=== PATIENT | female | born 1930 | race Caucasian/White ===

== ENCOUNTER 2017-12-09 15:15 | Inpatient (IN) ==
[2017-12-09 16:15] LABS: Basophils # 0.1 10*3/uL (0.0-0.2); Basophils % 1.1 % (0.0-0.8); Eosinophils # 0.2 10*3/uL (0.0-0.87); Eosinophils % 1.9 % (0.00-10.9); Hematocrit 35.4 VOL% (35.7-47.0); Hemoglobin 12.5 GM/DL (12.0-16.0); Immature Granulocytes % 0.4 %; Immature Granulocytes Absolute 0.03 #; Lymphocytes # 2.3 10*3/uL (1.4-4.0); Lymphocytes % 27.4 % (21.3-54.2); Mean Corpuscular HGB Conc 35.3 GM/DL (32-36); Mean Corpuscular Hemoglobin 33 PG (27-34); Mean Corpuscular Volume 93.4 FL (87-102); Mean Platelet Volume 10.8 FL (9.6-12.0); Monocytes # 1.1 10*3/uL (0.11-0.8); Monocytes % 12.9 % (1.7-12.7); Neutrophils # 4.6 10*3/uL (1.4-7.4); Neutrophils % 56.3 % (38.7-73.9); Platelet Count 228 T/CUMM (130-400); Red Blood Count 3.79 MC/CUMM (3.8-5.5); Red Cell Distribution Width 12.4 % (9.3-17.3); White Blood Count 8.2 T/CUMM (4-12)
[2017-12-09 16:37] LABS: INR 0.9
[2017-12-09 16:42] LABS: Albumin 3.8 G/DL (3.4-5.0); Bilirubin,Total 0.4 MG/DL (0.2-1.0); Calcium 9.2 MG/DL (8.5-10.1); Osmolality,Calculated 277.5 MOS/KG (273-304); Potassium 4.1 MMOL/L (3.5-5.1); Total Protein 6.9 G/DL (6.4-8.3)
[2017-12-09 16:43] LABS: Troponin I Only 0.207 NG/ML (0.00-0.045)
[2017-12-09] MEDS ORDERED: ENOXAPARIN 30 MG/0.3 ML SYRINGE SUBCUT STA (17:06)
[2017-12-09] MEDS ORDERED: ASPIRIN 325 MG TABLET PO STA (17:06)
[2017-12-09] MEDS ORDERED: ASPIRIN 325 MG TABLET ONE (17:08)
[2017-12-09] MEDS ORDERED: ENOXAPARIN 60 MG/0.6 ML SYRINGE ONE (17:08)
[2017-12-09] MEDS ORDERED: hydrALAZINE 20 MG/1 ML VIAL IV PRN (17:40)
[2017-12-09] MEDS ORDERED: DOCUSATE SODIUM 100 MG CAPSULE PO PRN (17:40)
[2017-12-09] MEDS ORDERED: FUROSEMIDE 40 MG/4 ML VIAL IV ONE (17:40)
[2017-12-09] MEDS ORDERED: ASPIRIN EC 325 MG TABLET PO STA (17:40)
[2017-12-09] MEDS ORDERED: NITROGLYCERIN SL 0.4 MG TABLET SL PRN (17:40)
[2017-12-09] MEDS ORDERED: ZALEPLON 5 MG CAPSULE PO PRN (17:40)
[2017-12-09] MEDS ORDERED: ONDANSETRON 4 MG/2 ML VIAL IV PRN (17:40)
[2017-12-09] MEDS ORDERED: MORPHINE 4 MG/1 ML VIAL IV PRN (17:40)
[2017-12-09] MEDS ORDERED: ACETAMINOPHEN 325 MG TABLET PO PRN (17:40)
[2017-12-09] MEDS ORDERED: FUROSEMIDE 40 MG/4 ML VIAL ONE (19:08)
[2017-12-09] MEDS: MECLIZINE 12.5 MG TABLET PO SCH (20:27)
[2017-12-09] MEDS: BRIMONIDINE/TIMOLOL OPH SOLN 5 ML BOTTLE BOTH EYES SCH (20:48)
[2017-12-09] MEDS ORDERED: ACETAMINOPHEN/diphenhydrAMINE 500-25 MG TABLET PO PRN (21:00)
[2017-12-09] MEDS: ATORVASTATIN 80 MG TABLET PO SCH (21:14)
[2017-12-09] MEDS: CARVEDILOL 3.125 MG TABLET PO SCH (21:14)
[2017-12-09] MEDS: ASPIRIN EC 81 MG TABLET PO SCH (21:14)
[2017-12-09] MEDS: POTASSIUM CHLORIDE 20 MEQ TABLET PO SCH (21:14)
[2017-12-09] MEDS: MAGNESIUM OXIDE 400 MG TABLET PO SCH (21:15)
[2017-12-10 04:26] LABS: Basophils # 0.1 10*3/uL (0.0-0.2); Basophils % 1.1 % (0.0-0.8); Eosinophils # 0.2 10*3/uL (0.0-0.87); Eosinophils % 2.2 % (0.00-10.9); Hemoglobin 11.7 GM/DL (12.0-16.0); Immature Granulocytes % 0.3 %; Immature Granulocytes Absolute 0.02 #; Lymphocytes # 2.3 10*3/uL (1.4-4.0); Lymphocytes % 32.5 % (21.3-54.2); Mean Corpuscular HGB Conc 34.4 GM/DL (32-36); Mean Corpuscular Hemoglobin 32 PG (27-34); Mean Corpuscular Volume 93.9 FL (87-102); Mean Platelet Volume 10.3 FL (9.6-12.0); Monocytes % 13.5 % (1.7-12.7); Neutrophils # 3.6 10*3/uL (1.4-7.4); Neutrophils % 50.4 % (38.7-73.9); Platelet Count 189 T/CUMM (130-400); Red Blood Count 3.62 MC/CUMM (3.8-5.5); Red Cell Distribution Width 12.2 % (9.3-17.3); White Blood Count 7.2 T/CUMM (4-12)
[2017-12-10 05:09] LABS: Calcium 8.6 MG/DL (8.5-10.1); Osmolality,Calculated 282.3 MOS/KG (273-304); Potassium 3.9 MMOL/L (3.5-5.1); Risk Ratio 2.38; Thyroid Stimulating Hormone 3.4 uIU/ml (0.358-3.74); VLDL CHOLESTEROL 21.6 MG/DL
[2017-12-10] MEDS ORDERED: DIAZEPAM 5 MG TABLET PO ONE (08:00)
[2017-12-10] MEDS ORDERED: diphenhydrAMINE CAP 25 MG CAPSULE PO ONE (08:00)
[2017-12-10] MEDS: BRIMONIDINE/TIMOLOL OPH SOLN 5 ML BOTTLE BOTH EYES SCH ×2 (08:51→21:35)
[2017-12-10] MEDS ORDERED: ASPIRIN EC 81 MG TABLET PO SCH (09:00)
[2017-12-10] MEDS ORDERED: HEPARIN/NACL 0.9% 2 UNITS/ML 1,000 ML IV ONE (10:11)
[2017-12-10] MEDS ORDERED: HYDROmorphone 2 MG/1 ML VIAL ONE (11:06)
[2017-12-10] MEDS ORDERED: MIDAZOLAM 2 MG/2 ML VIAL ONE (11:06)
[2017-12-10] MEDS: CARVEDILOL 3.125 MG TABLET PO SCH ×2 (12:21→21:35)
[2017-12-10] MEDS: SODIUM CHLORIDE 0.9% 1,000 ML IV SCH (12:55)
[2017-12-10] MEDS: POTASSIUM CHLORIDE 20 MEQ TABLET PO SCH ×2 (13:44→21:35)
[2017-12-10] MEDS: MAGNESIUM OXIDE 400 MG TABLET PO SCH ×2 (13:44→21:35)
[2017-12-10] MEDS: PANTOPRAZOLE 40 MG TABLET PO SCH (13:44)
[2017-12-10] MEDS: ISOSORBIDE MONONITRATE 30 MG TABLET PO SCH (17:25)
[2017-12-10] MEDS: ASPIRIN EC 81 MG TABLET PO SCH (21:35)
[2017-12-10] MEDS: ATORVASTATIN 80 MG TABLET PO SCH (21:35)
[2017-12-10] MEDS: MECLIZINE 12.5 MG TABLET PO SCH (21:51)
[2017-12-11] MEDS: SODIUM CHLORIDE 0.9% 1,000 ML IV SCH (00:22)
[2017-12-11 04:41] LABS: Basophils # 0.1 10*3/uL (0.0-0.2); Basophils % 0.9 % (0.0-0.8); Eosinophils # 0.2 10*3/uL (0.0-0.87); Eosinophils % 2.3 % (0.00-10.9); Hematocrit 30.7 VOL% (35.7-47.0); Immature Granulocytes % 0.3 %; Immature Granulocytes Absolute 0.02 #; Lymphocytes # 2.7 10*3/uL (1.4-4.0); Lymphocytes % 35.5 % (21.3-54.2); Mean Corpuscular HGB Conc 32.6 GM/DL (32-36); Mean Corpuscular Hemoglobin 32 PG (27-34); Mean Corpuscular Volume 98.1 FL (87-102); Mean Platelet Volume 10.6 FL (9.6-12.0); Monocytes % 12.6 % (1.7-12.7); Neutrophils # 3.7 10*3/uL (1.4-7.4); Neutrophils % 48.4 % (38.7-73.9); Platelet Count 175 T/CUMM (130-400); Red Blood Count 3.13 MC/CUMM (3.8-5.5); Red Cell Distribution Width 12.4 % (9.3-17.3); White Blood Count 7.5 T/CUMM (4-12)
[2017-12-11 05:35] LABS: Calcium 8.7 MG/DL (8.5-10.1); Osmolality,Calculated 286.1 MOS/KG (273-304); Potassium 4.8 MMOL/L (3.5-5.1)
[2017-12-11 08:23] VITALS: BP 109/59
[2017-12-11] MEDS: BRIMONIDINE/TIMOLOL OPH SOLN 5 ML BOTTLE BOTH EYES SCH (08:25)
[2017-12-11] MEDS: POTASSIUM CHLORIDE 20 MEQ TABLET PO SCH (08:56)
[2017-12-11] MEDS: MAGNESIUM OXIDE 400 MG TABLET PO SCH (08:56)
[2017-12-11] MEDS: CARVEDILOL 3.125 MG TABLET PO SCH (08:56)
[2017-12-11] MEDS: PANTOPRAZOLE 40 MG TABLET PO SCH (08:56)
[2017-12-11] MEDS: ISOSORBIDE MONONITRATE 30 MG TABLET PO SCH (08:56)
== END 2017-12-11 10:45 | disposition home or self-care (01) | DRG 286 ==
LOC: N.ED 15:15 → N.EDINP 17:40 → N.CC 18:27 → N.TELEN 12-10 18:23
PROVIDERS: ADMIT Internal Medicine Cardiovascular Disease; ATTEND Internal Medicine Cardiovascular Disease
PROC: CLCCHCL (ICD-10-PCS; 2017-12-10 10:45)